=== PATIENT | male | born 1960 | race Two or more races ===

== ENCOUNTER 2018-03-04 19:58 | Inpatient (IN) | payer BC ==
[~2018-03-04] VITALS: Ht 175.3 cm; Wt 81.6 kg
[2018-03-04] MEDS ORDERED: Nitroglycerin Subl 0.4mg tab SL PRN (20:30)
[2018-03-04] MEDS ORDERED: Aspirin Baby 81mg ORAL ONE (20:30)
[2018-03-04 20:57] LABS: EOSINOPHILS % (AUTO) 2.5 % (0.0-3.0); HEMATOCRIT 48.1 % (42.0-52.0); HEMOGLOBIN 16.8 G/DL (14.2-18.0); LYMPHOCYTES % (AUTO) 43.9 % (20.0-45.0); MEAN CORPUSCULAR VOLUME 90 FL (80-99); MONOCYTES % (AUTO) 7.4 % (1.0-10.0); NEUTROPHILS % (AUTO) 45.3 % (45.0-75.0); PLATELET COUNT 162 K/UL (150-450); RED BLOOD COUNT 5.34 M/UL (4.70-6.10); RED CELL DISTRIBUTION WIDTH 11.2 % (11.6-14.8); WHITE BLOOD COUNT 5.5 K/UL (4.8-10.8)
[2018-03-04 21:10] LABS: ANION GAP 12 mmol/L (5-15); BLOOD UREA NITROGEN 17 mg/dL (7-18); CALCIUM 8.8 MG/DL (8.5-10.1); CARBON DIOXIDE 26 MMOL/L (21-32); CHLORIDE 97 MMOL/L (98-107); CREATININE 0.9 MG/DL (0.55-1.30); POTASSIUM 3.3 MMOL/L (3.5-5.1); SODIUM 134 MMOL/L (136-145)
[2018-03-04 21:24] LABS: ALANINE AMINOTRANSFERASE 26 U/L (12-78); ALBUMIN 4.6 G/DL (3.4-5.0); ALBUMIN/GLOBULIN RATIO 1.3 (1.0-2.7); ALKALINE PHOSPHATASE 99 U/L (46-116); ASPARTATE AMINO TRANSFERASE 14 U/L (15-37); BILIRUBIN,TOTAL 0.6 MG/DL (0.2-1.0); CKMB 1.3 NG/ML (0.0-3.6); CREATINE KINASE 87 U/L (26-308)
[2018-03-04 22:46] VITALS: BP 124/67
[2018-03-04] MEDS ORDERED: LANTUS SOL100 UNIT/1 SUBQ (22:46)
--- NOTE | 2018-03-04 22:49 | Emergency Room Report ---
History of Present Illness General Chief Complaint: Chest Pain Source: Patient Present Illness HPI Patient is a 57-year-old male presented after increased chest discomfort which he describes as pressure-like sensation. Patient prior history of diabetes as well as hypertension. The pain was noted to be moderate in nature.The patient not been having fever. Allergies: Coded Allergies: No Known Allergies (Unverified , 03/04/18) Patient History Past Medical History: see triage record Reviewed Nursing Documentation: PMH: Agreed; PSxH: Agreed Nursing Documentation-PMH Hx Diabetes: Yes Review of Systems All Other Systems: negative except mentioned in HPI Physical Exam Vital Signs Date Time Temp Pulse Resp B/P (MAP) Pulse Ox O2 Delivery O2 Flow Rate FiO2 03/04/18 20:12 98.2 82 16 177/90 98 Room Air 98.2 Sp02 EP Interpretation: reviewed, normal General Appearance: normal inspection, well appearing, no apparent distress, alert, GCS 15 Head: atraumatic ENT: normal ENT inspection, hearing grossly normal, normal voice Neck: normal inspection, full range of motion, supple, no bony tend Respiratory: normal inspection, lungs clear, normal breath sounds, no respiratory distress, no retraction, no wheezing Cardiovascular #1: regular rate, rhythm, no edema Gastrointestinal: normal inspection, normal bowel sounds, non tender, soft, no guarding, no hernia Genitourinary: no CVA tenderness Musculoskeletal: normal inspection, back normal, normal range of motion Neurologic: normal inspection, alert, oriented x3, responsive, senior compensation analyst III-XII nml as tested, speech normal Psychiatric: normal inspection, judgement/insight normal, mood/affect normal Skin: normal inspection, normal color, no rash Medical Decision Making Diagnostic Impression: Primary Impression: Chest pain Additional Impressions: ACS (acute coronary syndrome) Hypertension Diabetes mellitus ER Course Patient presented for abdominal pain. Differential diagnoses included ischemic bowel, appendicitis, perforated viscus, abdominal aortic aneurysm, inferior myocardial infarction, viral gastroenteritis. Because of complexity of patient' s case laboratory testing and imaging studies were ordered. Laboratory testing was unremarkable.. EKG interpreted by me showed normal sinus rhythm with a rate of 65 with left anterior fascicular block without acute ST or T wave changes. Patient was given aspirin as well as nitroglycerin with improvement of symptoms. Chest x-ray one view interpreted by me showed borderline cardiomegaly without evident infiltrate or pneumothorax. Dr. Eric Sanders for inpatient management. Labs Test 03/04/18 20:35 White Blood Count 5.5 K/UL (4.8-10.8) Red Blood Count 5.34 M/UL (4.70-6.10) Hemoglobin 16.8 G/DL (14.2-18.0) Hematocrit 48.1 % (42.0-52.0) Mean Corpuscular Volume 90 FL (80-99) Mean Corpuscular Hemoglobin 31.5 PG (27.0-31.0) Mean Corpuscular Hemoglobin Concent 35.0 G/DL (32.0-36.0) Red Cell Distribution Width 11.2 % (11.6-14.8) Platelet Count 162 K/UL (150-450) Mean Platelet Volume 8.4 FL (6.5-10.1) Neutrophils (%) (Auto) 45.3 % (45.0-75.0) Lymphocytes (%) (Auto) 43.9 % (20.0-45.0) Monocytes (%) (Auto) 7.4 % (1.0-10.0) Eosinophils (%) (Auto) 2.5 % (0.0-3.0) Basophils (%) (Auto) 1.0 % (0.0-2.0) Prothrombin Time 10.2 SEC (9.30-11.50) Prothromb Time International Ratio 1.0 (0.9-1.1) Activated Partial Thromboplast Time 26 SEC (23-33) Sodium Level 134 MMOL/L (136-145) Potassium Level 3.3 MMOL/L (3.5-5.1) Chloride Level 97 MMOL/L (98-107) Carbon Dioxide Level 26 MMOL/L (21-32) Anion Gap 12 mmol/L (5-15) Blood Urea Nitrogen 17 mg/dL (7-18) Creatinine 0.9 MG/DL (0.55-1.30) Estimat Glomerular Filtration Rate > 60 mL/min (>60) Glucose Level 276 MG/DL (74-106) Calcium Level 8.8 MG/DL (8.5-10.1) Total Bilirubin 0.6 MG/DL (0.2-1.0) Aspartate Amino Transf (AST/SGOT) 14 U/L (15-37) Alanine Aminotransferase (ALT/SGPT) 26 U/L (12-78) Alkaline Phosphatase 99 U/L (46-116) Total Creatine Kinase 87 U/L (26-308) Creatine Kinase MB 1.3 NG/ML (0.0-3.6) Creatine Kinase MB Relative Index 1.4 Troponin I 0.000 ng/mL (0.000-0.056) C-Reactive Protein, Quantitative < 0.4 mg/dL (0.00-0.90) Pro-B-Type Natriuretic Peptide 16 pg/mL (0-125) Total Protein 8.1 G/DL (6.4-8.2) Albumin 4.6 G/DL (3.4-5.0) Globulin 3.5 g/dL Albumin/Globulin Ratio 1.3 (1.0-2.7) Lipase 130 U/L (73-393) EKG Diagnostic Results Rate: normal Rhythm: NSR ST Segments: no acute changes Last Vital Signs Date Time Temp Pulse Resp B/P (MAP) Pulse Ox O2 Delivery O2 Flow Rate FiO2 03/04/18 20:40 148/80 03/04/18 20:15 82 16 Room Air 03/04/18 20:12 98.2 98 98.2 Status: unchanged Disposition: ADMITTED INPATIENT Condition: Serious Referrals: NON PHYSICIAN (PCP) Delroy Rossi MD Mar 04, 2018 22:49
[2018-03-05] VITALS: BP 128/77
[2018-03-05] MEDS ORDERED: LANTUS SOL100 UNIT/1 SUBQ (00:51)
[2018-03-05] MEDS ORDERED: Zolpidem 5mg tab ORAL PRN (01:45)
[2018-03-05] MEDS ORDERED: Milk of Magnesia 30ml Ud ORAL PRN (01:45)
[2018-03-05 04:00] VITALS: BP 116/62
[2018-03-05] MEDS ORDERED: Nitroglycerin 2% oint pkt TOPIC SCH (06:00)
[2018-03-05] MEDS: NovoLOG Insulin Flexpen SUBQ SCH ×4 (06:22→21:00)
[2018-03-05 06:24] LABS: BASOPHILS % (AUTO) 0.8 % (0.0-2.0); EOSINOPHILS % (AUTO) 2.1 % (0.0-3.0); HEMOGLOBIN 16.6 G/DL (14.2-18.0); LYMPHOCYTES % (AUTO) 42.7 % (20.0-45.0); MEAN CORPUSCULAR VOLUME 90 FL (80-99); MONOCYTES % (AUTO) 8.4 % (1.0-10.0); NEUTROPHILS % (AUTO) 46.1 % (45.0-75.0); PLATELET COUNT 150 K/UL (150-450); RED BLOOD COUNT 5.33 M/UL (4.70-6.10); RED CELL DISTRIBUTION WIDTH 10.9 % (11.6-14.8); WHITE BLOOD COUNT 4.6 K/UL (4.8-10.8)
[2018-03-05 06:46] LABS: ANION GAP 7 mmol/L (5-15); BLOOD UREA NITROGEN 14 mg/dL (7-18); CALCIUM 8.3 MG/DL (8.5-10.1); CARBON DIOXIDE 28 MMOL/L (21-32); CHLORIDE 101 MMOL/L (98-107); CREATININE 0.7 MG/DL (0.55-1.30); POTASSIUM 3.7 MMOL/L (3.5-5.1); SODIUM 136 MMOL/L (136-145)
[2018-03-05 08:00] VITALS: BP 110/68
[2018-03-05] MEDS: Aspirin Baby 81mg ORAL SCH (08:12)
[2018-03-05] MEDS: Heparin 5000 units/ml inj SUBQ SCH ×2 (08:16→20:59)
--- NOTE | 2018-03-05 08:47 | Diagnostic Imaging Report ---
Indication: Shortness of breath Technique: One view of the chest Comparison: none Findings: Lungs and pleural spaces are clear. Heart size is normal Impression: No acute process
[2018-03-05] MEDS ORDERED: Atenolol 25mg tab ORAL SCH (09:00)
[2018-03-05] MEDS ORDERED: Nitroglycerin Subl 0.4mg tab SL PRN (09:45)
[2018-03-05] MEDS ORDERED: Lexiscan 0.4mg/5ml syringe IV SCH (11:00)
[2018-03-05 11:58] VITALS: BP 110/60
[2018-03-05 12:39] LABS: CHOLESTEROL 151 MG/DL (< 200); HDL CHOLESTEROL 42 MG/DL (40-60); TRIGLYCERIDES 139 MG/DL (30-150)
[2018-03-05 16:00] VITALS: BP 100/64
--- NOTE | 2018-03-05 17:30 | History and Physical Report ---
DATE OF ADMISSION: 03/04/2018 REASON FOR ADMISSION: Chest pain, possible acute coronary syndrome. HISTORY OF PRESENT ILLNESS: This is a 57-year-old male, who presents with chest discomfort, notes that the work level was high and the patient had associated stress. Denies any radiation of pain. Denies any shortness of breath. The patient does have history of diabetes and hypertension, which is well controlled. No early family history of heart disease. The patient is now comfortable at present. No other significant finding. No nausea or vomiting. PAST MEDICAL HISTORY: As above. MEDICATIONS: Reviewed. ALLERGIES: Reviewed. SOCIAL HISTORY: As discussed, the patient is independent. Nonsmoker. Nondrinker. REVIEW OF SYSTEMS: All 10-points reviewed and otherwise negative. PHYSICAL EXAMINATION: GENERAL: A well-developed male, comfortable at present. VITAL SIGNS: Blood pressure 110/68, pulse 67, respirations 20, sats 96%, and temperature 98. LUNGS: Clear. No rhonchi or wheezes. CARDIAC: Normal S1, S2. Regular rate and rhythm without murmurs, rubs, or gallops. ABDOMEN: Soft, nontender, and nondistended. EXTREMITIES: No cyanosis, clubbing, or edema. NEUROLOGIC: Grossly nonfocal. LABORATORY DATA: Otherwise reviewed. Appears to be within normal except blood sugar is 236. Troponins are thus far negative. IMPRESSION: Chest pain, possible acute coronary syndrome, diabetes, and hypertension. RECOMMENDATIONS: 1. Supportive care. 2. Serial troponins. 3. Cardiology evaluation. 4. Aspirin and atenolol. 5. Proceed with Lexiscan in a.m. and if cleared and all stable, we will discharge to home. Eric Sanders M.D. DR: TIMMY JOB#: [id number] CC:
[2018-03-05 19:47] VITALS: BP 108/62
[2018-03-05] MEDS ORDERED: Levemir Flexpen SUBQ SCH ×2 (21:00)
[2018-03-06] VITALS: BP 103/63
--- NOTE | 2018-03-06 02:15 | Progress Note ---
DATE: 03/05/2018 CARDIOLOGY PROGRESS NOTE SUBJECTIVE: The patient still has not had any recurring chest pressure. He has no shortness of breath. Monitored rhythm, sinus with no ectopy. Troponins negative x3. Lipid panel notable for total cholesterol 151, LDL 105, HDL 42. OBJECTIVE: VITAL SIGNS: Blood pressure 100/64, heart rate 60, respiratory rate 19. NECK: Supple. LUNGS: Clear. CARDIAC: Regular. Normal S1, S2. ABDOMEN: Soft. EXTREMITIES: No edema. IMPRESSION: Episode of chest pressure, now resolved, in the setting of multiple risk factors for premature coronary disease. PLAN: Discontinue beta-adam. Continue antiplatelet therapy and cardiac monitoring. Noninvasive assessment of coronary flow reserve to follow. Willie Nichole M.D. DR: Catalina JOB#: [id number] CC:
--- NOTE | 2018-03-06 03:00 | Consultation ---
DATE OF CONSULTATION: 03/05/2018 CARDIOLOGY CONSULTATION CONSULTING PHYSICIAN: Willie Nichole M.D. REASON FOR CONSULTATION: Chest pain. HISTORY OF PRESENT ILLNESS: This is a 57-year-old white gentleman with no prior history of cardiovascular disease, but has coronary risk factors that include diabetes and hypertension. The patient has had a significant amount of stress at work and presented to the emergency room around 5:30 p.m. after noting chest pressure following his work day. There were no other precipitating factors, and the discomfort felt like a heaviness that was quite strong and unremitting. The patient's symptoms resolved shortly after his treatment in the emergency room. PAST MEDICAL HISTORY: Insulin-requiring diabetes mellitus and hypertension. MEDICATIONS: Reviewed and reconciled. ALLERGIES: None known. FAMILY HISTORY: Notable for diabetes in both . SOCIAL HISTORY: Negative for smoking, alcohol, or substance abuse. REVIEW OF SYSTEMS: A 10-point review of systems performed, all systems negative other than noted above. PHYSICAL EXAMINATION: VITAL SIGNS: Blood pressure 110/68, pulse 67, respiratory rate 20, afebrile, and oxygen saturation 96% on room air. GENERAL: Appears well, in no distress. HEENT: Conjunctivae are pink. Oropharynx clear. No xanthoma. NECK: Supple. No jugular venous distention or bruits. LUNGS: Clear. CARDIAC: Regular. Normal S1 and S2 with no murmur, rub, or gallop. ABDOMEN: Soft and nontender. EXTREMITIES: No edema. Good distal pulses. NEUROLOGIC: Nonfocal. LABORATORY AND DIAGNOSTIC DATA: Troponin negative. EKG, sinus rhythm with no abnormality. IMPRESSION: Possible acute coronary syndrome with risk factors for premature coronary disease that include diabetes and hypertension. RECOMMENDATION: Recommend cardiac monitoring, serial troponins, oral aspirin, beta-blockade. If no recurring signs of ischemia, may proceed with noninvasive assessment of coronary flow reserve. Willie Nichole M.D. DR: MEDINA JOB#: [id number] CC:
[2018-03-06 04:00] VITALS: BP 118/67
[2018-03-06] MEDS: NovoLOG Insulin Flexpen SUBQ SCH ×2 (06:30→11:30)
[2018-03-06 08:00] VITALS: BP 110/73
[2018-03-06] MEDS: Heparin 5000 units/ml inj SUBQ SCH (09:00)
[2018-03-06] MEDS: Aspirin Baby 81mg ORAL SCH (09:29)
--- NOTE | 2018-03-06 11:29 | General Progress Note ---
Assessment/Plan Assessment/Plan CP POSSIBLE ACS DM PLAN await stress cards noted dc pending results impression, plan, and exam edited and reviewed in detail care discussed with RN Subjective Allergies: Coded Allergies: No Known Allergies (Unverified , 03/04/18) Subjective stable no cp or sob Objective Last 24 Hour Vital Signs Date Time Temp Pulse Resp B/P (MAP) Pulse Ox O2 Delivery O2 Flow Rate FiO2 03/06/18 09:00 Room Air 03/06/18 08:00 52 03/06/18 08:00 97.7 86 18 110/73 (85) 99 97.7 03/06/18 04:00 50 03/06/18 04:00 97.0 54 20 118/67 (84) 97 97.0 03/06/18 00:00 52 03/06/18 00:00 97.4 59 20 103/63 (76) 96 97.4 03/05/18 21:00 Room Air 03/05/18 20:00 62 03/05/18 19:47 97.9 61 20 108/62 (77) 98 97.9 03/05/18 16:00 60 03/05/18 16:00 97.4 63 19 100/64 (76) 94 97.4 03/05/18 12:00 53 03/05/18 11:58 98.0 61 19 110/60 (77) 96 98.0 Intake and Output 03/05/18 03/06/18 19:00 07:00 # Voids 3 2 # Bowel Movements 1 1 Laboratory Tests 03/05/18 11:45: Troponin I 0.000 03/05/18 20:00: Troponin I 0.000 Height (Feet): 5 Height (Inches): 9.00 Weight (Pounds): 180 Objective WDWN NAD clear breath sounds bilaterally without rhonchi or wheeze [id number] without MRG NABS nontender no HSM no CCE nonfocal Eric Sanders MD Mar 06, 2018 11:29
[2018-03-06 12:00] VITALS: BP 123/70
--- NOTE | 2018-03-06 12:40 | Cardiology Report ---
APPROVED REPORT EKG Measurement Heart [id number] Normal sinus rhythm Left axis deviation Low voltage QRS Abnormal ECG
--- NOTE | 2018-03-06 12:41 | Cardiology Report ---
APPROVED REPORT EKG Measurement Heart [id number] DC [id number] Normal sinus rhythm Left axis deviation Cannot rule out Anterior infarct, age undetermined Abnormal ECG
--- NOTE | 2018-03-06 15:35 | Diagnostic Imaging Report ---
Indications: Chest pain Technique: Single day single isotope protocol utilized. Initially, resting images obtained using IV administration 10.5 millicuries 99M technetium Myoview. Subsequently, patient underwent lexiscan stress testing. See cardiology report for details. During Lexiscan infusion, IV administration 32.7 mCi 99 M technetium Myoview. SPECT and planar images obtained. SPECT images gated to 8 phases of the cardiac cycle were also obtained, and reformatted into cine images for evaluation of ejection fraction. Comparison: none Findings: Per cardiology report, patient experienced no symptoms. Per cardiology report, resting EKG demonstrates sinus bradycardia. No ST changes are reported during infusion. Apparent small apical perfusion defect on the coronal long axis images is not evident on the orthogonal projections, most likely artifactual. No definite fixed nor reversible post stress perfusion defects are evident. Normal left ventricular chamber size. Calculated post stress ejection fraction 67%. No focal wall motion abnormality Impression: Nonischemic clinical response to pharmacologic stress, per cardiology report Nonischemic electrocardiographic response to pharmacologic stress, per cardiology report No imaging findings to suggest ischemia, at level of stress achieved. Calculated post stress ejection fraction %
--- NOTE | 2018-03-07 04:30 | Progress Note ---
DATE: 03/06/2018 CARDIOLOGY PROGRESS NOTE SUBJECTIVE: The patient has no recurrent chest pain. Blood pressure is well controlled. Discussions were undertaken regarding long-term benefits of angiotensin-converting enzyme inhibitors and statin drugs in the setting of insulin-requiring diabetes despite his blood pressure control. The patient underwent a myocardial perfusion scan with Lexiscan stress earlier. He was discharged subsequently, I reviewed the scan, after it was completed and the results revealed normal ejection fraction and perfusion. PHYSICAL EXAMINATION: VITAL SIGNS: Blood pressure 110/73, pulse 52, respirations 18, and afebrile. LUNGS: Clear. CARDIAC: Regular. Normal S1 and S2. ABDOMEN: Soft. EXTREMITIES: No edema. IMPRESSION: 1. Chest pain episodes, unlikely to reflect flow-limiting coronary disease. 2. Insulin-requiring diabetes mellitus. 3. Sinus bradycardia due to beta-adam therapy. PLAN: Outpatient followup. Continue current insulin dosing. Consider low-dose statin and angiotensin-converting enzyme inhibitor for prophylaxis as described above. Continue aspirin prophylaxis with 81 mg daily. No plan to continue beta-adam. Willie Nichole M.D. DR: LIVIA JOB#: [id number] CC:
--- NOTE | 2018-03-09 12:39 | Discharge Summary ---
Discharge Summary Discharge Summary _ DATE OF ADMISSION: 03/04/2018 DATE OF DISCHARGE: 03/06/2018 REASON FOR ADMISSION: 57 years old male with history of diabetes , presented to emergency room complaining of chest pain, pressure-like , no associated shortness of breath . Upon evaluation blood pressure was elevated 177/90. Troponin negative, pro BNP 16 . EKG revealed normal sinus rhythm, no acute ischemic changes Blood glucose 276 No leukocytosis ,stable hemoglobin and hematocrit. Potassium 3.3 . Chest x-ray revealed no acute cardiopulmonary pathology. Patient admitted with diagnoses of chest pain, possible acute coronary syndrome , diabetes mellitus ,elevated blood pressure, hypokalemia. 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 Serial troponin were negative . EKG, initial and repeated , showed no acute ischemic changes .Telemetry negative. [employer] closely followed. Patient started on antiplatelet therapy , beta adam, and Nitroglycerin as needed. Potassium was replaced. Myocardial perfusion scan was nonischemic. Blood pressure stabilized ,however patient developed bradycardia. Blood pressure remained stable. Beta adam discontinued. [employer] Fabricator recommended consider low-dose of DANNA inhibitor given history of diabetes. Lipid panel revealed elevated LDL -105 . Patient was counseled on low-fat low-cholesterol cardiac diabetic diet. Patient was recommended to repeat lipid test in 3 months, and if still elevated LDL, consider statin. [employer] Fabricator cleared for discharge. Chest pain unlikely was reflecting flow-limiting coronary disease . Blood sugar was managed with long-acting Levemir and sliding scale of insulin as needed. Nno further chest pain . GI prophylaxis provided . Patient was stable for discharge and outpatient follow-up with equine science instructor. FINAL DIAGNOSES: Chest pain, acute coronary syndrome was ruled out Diabetes mellitus, insulin dependent Bradycardia Hypokalemia -resolved DISCHARGE MEDICATIONS: See Medication Reconciliation list. DISCHARGE INSTRUCTIONS: [] I have been assigned to dictate discharge summary for this account. I was not involved in the patient's management. Sarai Burch NP Mar 09, 2018 12:39
== END 2018-03-06 15:05 | disposition home or self-care (01) | DRG 313 ==
LOC: EMR 21:29 → 2E 21:36 → EDBEDREQ 21:51
DX: R07.9 Chest pain, unspecified (principal); E11.9 Type 2 diabetes mellitus without complications; I10 Essential (primary) hypertension; Z79.4 Long term (current) use of insulin; R00.1 Bradycardia, unspecified; E87.6 Hypokalemia
CPT/HCPCS: 36415; 71045; 78452; 80048; 80053; 80061; 82550; 82553; 82962; 83690; 83880; 84484; 85025; 85610; 85730; 86140; 93005; 93017; J1815; J2785; J8499; S5561